=== PATIENT | male | born 1975 | race Caucasian/White ===

== ENCOUNTER 2022-07-26 09:58 | Outpatient (CLI) | payer OTHER, SELFPAY | END 2022-07-26 09:59 | disposition home or self-care (01) | LOC: ANHBWCAUD 09:59 | DX: H90.3 Sensorineural hearing loss, bilateral (principal) | CPT/HCPCS: 92557; 92567 ==

== ENCOUNTER 2024-07-15 08:04 | Outpatient (CLI) | payer OTHER, SELFPAY ==
--- OUTSIDE RECORDS SUMMARY | 2024-07-15 08:12 | XMS_ITS | Encounter Summary ---
Author Organization [facility] Address [address] [place] [address] Phone Care Team Providers Care Administrative Representative Name Role Phone Dinah López APRN, CNP Primary Care Provid er Wilfredo Wharton MD Unavailable Power Henao MD Unavailable Thomas Tompkins MD Unavailable Reason for Visit * Reason Comments Medication Refill Encounter Details Date Type Department Care Team (Late Contact Info) Description 08/21/2022 Refill [facility] #2 [place] [address] Dinah López APRN, CNP [address] [address] Medication Refill Social History Tobacco Use Types Packs/Day Years Used Date Smoking Tobacco: Never Smokeless Tobacco: Never Alcohol Use Standard Drinks/Week Comments No 0 (1 standard drink = 0.6 oz pur e alcohol) PHQ-2 Answer Date Recorded Total Score - Questions 1-9 19 05/17 Education Answer Date Recorded What is the highest level of school you have completed or the highest degree you have received? 12th grade 05/29/2022 Sexually Active Control Partners Comments Yes None Female Sex and Gender Information Value Date Recorded Sex Assigned at Not on file Legal Sex Male 8:06 PM CDT Gender Identity Not on file Sexual Orientation Not on file COVID-19 Exposure Response Date Recorded In the last 10 days, have yo u been in contact with someone who was confirmed or suspected to have Coronavirus/COVID-19? No / Unsure 08/08/2022 9:26 AM CDT documented as of this encounter Miscellaneous Notes * Telephone Encounter - Linda Pond RN - 08/22/2022 1:19 PM CDT Medication failed the protocol, provider to review and approve the medication order if appropriate. Requested Prescriptions Pending Prescriptions Disp Refills gabapentin (NEURONTIN) 400 MG Capsule [Pharmacy Med Name: GABAPENTIN 400MG CAPSULES] 90 Capsule 1 Sig: TAKE 1 CAPSULE BY MOUTH EVERY NIGHT Not Delegated - Anticonvulsants Excluding Benzodiazepines Protocol Failed - 08/21/2022 4:12 PM Failed - This refill cannot be delegated Passed - Visit with relevant provider in past 12 months or upcoming 90 days Recent Visits Date Type Provider Dept 08/08/22 Office Visit Dinah López APRN, CNP [facility] [place] 06/27/22 Office Visit Dinah López APRN, MARY [facility] 05/30/22 Office Visit Dinah López APRN, MARY [facility] 02/21/22 Office Visit Ellis Guardado APRN, MARY [facility] [place] 12/23/21 Office Visit Dinah López APRN, MARY [facility] 11/24/21 Office Visit Dinah López APRN, AMRY [facility] Showing recent visits within past 365 days and meeting all other requirements Future Appointments Date Type Provider Dept 11/09/22 Appointment Dinah López APRN, MARY [facility] Showing future appointments within next 90 days and meeting all other requirements Refused Prescriptions Disp Refills busPIRone (BUSPAR) 5 MG Tablet [Pharmacy Med Name: BUSPIRONE 5MG TABLETS] 180 Tablet 0 Sig: TAKE 1 TABLET BY MOUTH TWICE DAILY Buspirone (6 Month Refill Only) Protocol Failed - 08/21/2022 4:12 PM Failed - Active on medication list Failed - Patient has established therapy with Buspirone for at least 6 months Passed - Visit with relevant provider in past 6 months or upcoming 90 days Recent Visits Date Type Provider Dept 08/08/22 Office Visit Dinah López APRN, CNP [facility] [place] 06/27/22 Office Visit Dinah López APRN, CNP [facility] [place] 05/30/22 Office Visit Dinah López APRN, CNP [facility] [place] 02/21/22 Office Visit Ellis Guardado APRN, CNP [facility] [place] Showing recent visits within past 182 days and meeting all other requirements Future Appointments Date Type Provider Dept 11/09/22 Appointment Dinah López APRN, CNP [facility] [place] Showing future appointments within next 90 days and meeting all other requirements Passed - Has an encounter in the past 6 months with a depression or anxiety visit diagnosis * Telephone Encounter - Linda Pond RN - 08/22/2022 1:18 PM CDT Name from pharmacy: BUSPIRONE 5MG TABLETS Will file in chart as: busPIRone (BUSPAR) 5 MG Tablet The original prescription was discontinued on 06/27/2022 by Dinah López APRN, CNP documented in this encounter Plan of Treatment Upcoming Encounters Date Type Department Care Team (Late st Contact Info) Description 10/07/2024 8:00 AM CDT Office Visit [facility] - Family Medicine - [place] [address] [place] [address] Dinah López APRN, CNP [id number] [address] 01/08/2025 9:30 AM CDT Office Visit [facility] - Endocrinology - [place] [address] [place] [address] Wilfredo Wharton MD [address] [address] documented as of this encounter Visit Diagnoses Diagnosis Generalized anxiety disorder with panic attacks documented in this encounter Additional Health Concerns Assessment Noted Time PHQ-9 Depression Total Score: 19 05/30/ 023 11:00 AM CDT documented as of this encounter Care Teams Administrative Representative Relationship Specialty Start Date End Date Dinah López APRN, MANAGER AREA [address] [place] [address] [place] [address] PCP - General Advanced Practice Nurse 11/24/21 Wilfredo Wharton MD [address] [address] Consulting Physician Endocrinology 03/29/22 Power Henao MD #2 [place] [address] Consulting Physician Pulmonary Disease 09/12/22 Thomas Tompkins MD [address] [phone] Consulting Physician General Surgery 05/28/23 documented as of this encounter
--- OUTSIDE RECORDS SUMMARY | 2024-07-15 08:12 | XMS_ITS | Encounter Summary ---
Author Organization [facility] Address [address] [place] [address] Phone Care Team Providers Care Instrument Panel Assembler Name Role Phone Dinah López APRN, CNP Primary Care Provid er Wilfredo Wharton MD Unavailable Power Henao MD Unavailable Thomas Tompkins MD Unavailable [phone] Reason for Visit * Reason Comments Medication Refill Encounter Details Date Type Department Care Team (Late Contact Info) Description 01/25/2022 Refill [facility] - Family Medicine [facility] #2 [place] [address] Dinah López APRN, CNP #[address] [address] Medication Refill Social History Tobacco Use Types Packs/Day Years Used Date Smoking Tobacco: Never Smokeless Tobacco: Never Alcohol Use Standard Drinks/Week Comments No 0 (1 standard drink = 0.6 oz pur e alcohol) PHQ-2 Answer Date Recorded Total Score - Questions 1-9 0 10/2021 Education Answer Date Recorded What is the highest level of school you have completed or the highest degree you have received? GED or equivalent 10/2021 Sexually Active Control Partners Comments Yes None Female Sex and Gender Information Value Date Recorded Sex Assigned at Not on file Legal Sex Male 8:06 PM CDT Gender Identity Not on file Sexual Orientation Not on file documented as of this encounter Miscellaneous Notes * Telephone Encounter - Linda Pond RN - 01/26/2022 7:50 AM CST Medication failed the protocol, provider to review and approve the medication order if appropriate. Requested Prescriptions Pending Prescriptions Disp Refills sildenafil citrate (VIAGRA) 100 MG Tablet [Pharmacy Med Name: SILDENAFIL 100MG TABLETS] 30 Tablet 0 Sig: TAKE 1 TABLET BY MOUTH NEEDED FOR ERECTILE DYSFUNCTION Erectile Dysfunction Medication Protocol Failed - 01/25/2022 3:01 PM Failed - Erectile dysfunction on problem list Passed - Visit with relevant provider in past 12 months or upcoming 90 days Recent Visits Date Type Provider Dept 12/23/21 Office Visit Dinah López APRN, CNP [facility] 11/24/21 Office Visit [facility], [facility] Showing recent visits within past 365 days and meeting all other requirements Future Appointments Date Type Provider Dept 02/21/22 Appointment Ellis Guardado APRN, CNP [facility] [place] Showing future appointments within next 90 days and meeting all other requirements Passed - Absence of nitrates on med list EN YOGURT MAKER documented in this encounter Plan of Treatment Upcoming Encounters Date Type Department Care Team (Late st Contact Info) Description 10/07/2024 8:00 AM CDT Office Visit [facility] - Family Medicine - [place] [address]2 [place] [phone] Dinah López APRN, MARY #2 [facility] [address] [place] [address] 01/08/2025 9:30 AM CDT Office Visit [facility] Medical [facility] - Endocrinology - [place] [address]2 [place] [phone] Wilfredo Wharton MD #2 [facility] [address] [place] [phone] documented as of this encounter Visit Diagnoses Diagnosis Erectile dysfunction, unspecified erectile dysfunction type documented in this encounter Care Teams Instrument Panel Assembler Relationship Specialty Start Date End Date Dinah LópezMATT, MARY #2 [facility] [address] [place] [address] PCP - General Advanced Practice Nurse 11/24/21 Wilfredo Wharton MD #2 [facility] [address] [place] [address] Consulting Physician Endocrinology 03/29/22 Power Henao MD #2 [place] [phone] Consulting Physician Pulmonary Disease 09/12/22 Thomas Tompkins MD #[address] [address] Consulting Physician General Surgery 05/28/23 documented as of this encounter
--- OUTSIDE RECORDS SUMMARY | 2024-07-15 08:12 | XMS_ITS | Encounter Summary ---
Author Organization [facility] Address [address] [place] [address] Phone Care Team Providers Care Civil Engineering Project Manager Name Role Phone Dinah López APRN, CNP Primary Care Provid er Wilfredo Wharton MD Unavailable Power Henao MD Unavailable Thomas Tompkins MD Unavailable [phone] Reason for Visit * Reason Comments Medication Refill Encounter Details Date Type Department Care Team (Late Contact Info) Description 08/20/2023 Refill [facility] - Family Medicine [facility] #2 [place] [address] Dinah López APRN, CNP #[address] [address] Medication Refill Social History Tobacco Use Types Packs/Day Years Used Date Smoking Tobacco: Never Smokeless Tobacco: Never Alcohol Use Standard Drinks/Week Comments No 0 (1 standard drink = 0.6 oz pur e alcohol) [facility] Utilities Answer Date Recorded In the past 12 months has th e electric, gas, oil, or water company threatened to shut off services in your home? No 05/16/2023 Social Connection and Isolation Panel [NHANES] A nswer Date Recorded In a typical week, how many times do you talk on the phone with family, friends, or neighbors? Once a week 05/16/2023 How often do you get together with friends or re latives? Twice a week 05/16/2023 How often do you attend oriental orthodox or hindu serv ices? Never 05/16/2023 Do you belong to any clubs o r organizations such as oriental orthodox groups, unions, fraternal or athletic groups, or school groups? No 05/16/2023 How often do you attend meet ings of the clubs or organizations you belong to? Never 05/16/2023 Are you , , di vorced, , never , or living with a partner? 05/16/2023 AUDIT-C Answer Date Recorded Q1: How often do you have a drink containing alcohol? Never 05/16/2023 Q2: How many drinks containi ng alcohol do you have on a typical day when you are drinking? Patient does not drink Q3: How often do you have si x or more drinks on one occasion? Never 05/16/2023 Overall Financial Resource Strain (CARDIA) Answe r Date Recorded How hard is it for you to pa y for the very basics like food, housing, medical care, and heating? Not hard at all 05/16/2023 PHQ-2 Answer Date Recorded Total Score - Questions 1-9 0 /0 03/2023 [facility] - Occupational Stress Questionnaire Answer Date Recorded Do you feel stress - tense, restless, nervous, or anxious, or unable to sleep at night because your mind is troubled all the time - these days? Patient declined 05/16/2023 Exercise Vital Sign Answer Date Recorde d On average, how many days pe r week do you engage in moderate to strenuous exercise (like a brisk walk)? 2 days 05/16/2023 On average, how many minutes do you engage in exercise at this level? 20 min 05/16/2023 Hunger Vital Sign Answer Date Recorded Within the past 12 months, y ou worried that your food would run out before you got the money to buy more. Never true Within the past 12 months, t he food you bought just didn't last and you didn't have money to get more. Sometimes true PRAPARE - Transportation Answer Date Re corded In the past 12 months, has l ack of transportation kept you from medical appointments or from getting medications? No 04/20 In the past 12 months, has l ack of transportation kept you from meetings, work, or from getting things needed for daily living? No 05/16/2023 Housing Stability Vital Sign Answer Jeffrey e Recorded In the last 12 months, was t here a time when you were not able to pay the mortgage or rent on time? No 05/16/2023 In the last 12 months, how many places have you lived? 1 05/16/2023 In the last 12 months, was t here a time when you did not have a steady place to sleep or slept in a fci (including now)? No 05/16/2023 Education Answer Date Recorded What is the [...] Telephone Encounter - Linda Pond RN - 08/20/2023 11:43 AM CDT Medication failed the protocol, provider to review and approve the medication order if appropriate. Requested Prescriptions Pending Prescriptions Disp Refills sildenafil citrate (VIAGRA) 100 MG Tablet [Pharmacy Med Name: SILDENAFIL 100MG TABLETS] 30 Tablet 0 Sig: TAKE 1 TABLET BY MOUTH DAILY NEEDED FOR ERECTILE DYSFUNCTION Erectile Dysfunction Medication Protocol Failed - 08/20/2023 12:41 AM Failed - Erectile dysfunction on problem list Passed - Visit with relevant provider in past 12 months or upcoming 90 days Recent Visits Date Type Provider Dept 05/18/23 Office Visit Dinah López APRN, MARY [place] 11/09/22 Office Visit Dinah López APRN, M[facility] [place] Showing recent visits within past 365 days and meeting all other requirements Future Appointments Date Type Provider Dept 09/17/23 Appointment Dinah López APRN, M[facility] [place] Showing future appointments within next 90 days and meeting all other requirements Passed - Absence of nitrates on med list documented in this encounter Plan of Treatment Upcoming Encounters Date Type Department Care Team (Late st Contact Info) Description 10/07/2024 8:00 AM CDT [facility] #2 [place] [address] Dinah López APRN, DATA ENTRY MANAGER #[address] [address] 01/08/2025 9:30 AM CDT Office Visit [facility] Endocrinology - [place] #2 [place] [phone] Wilfredo Wharton MD #[address] [phone] documented as of this encounter Visit Diagnoses Diagnosis Erectile dysfunction, unspecified erectile dysfunction type documented in this encounter Additional Health Concerns Assessment Noted Time PHQ-9 Depression Total Score: 0 05/18/19 24 9:04 AM PROGRAM MANAGEMENT SPECIALIST documented as of this encounter Care Teams Civil Engineering Project Manager Relationship Specialty Start Date End Date Dinah López APRN, DATA ENTRY MANAGER #[address] [address] PCP - General Advanced Practice Nurse 11/24/21 Wilfredo Wharton MD #[address] [phone] Consulting Physician Endocrinology 03/29/22 Power Henao MD #2 [place] [phone] Consulting Physician Pulmonary Disease 09/12/22 Thomas Tompkins MD #[address] [address] Consulting Physician General Surgery 05/28/23 documented as of this encounter
--- OUTSIDE RECORDS SUMMARY | 2024-07-15 08:12 | XMS_ITS | Encounter Summary ---
Author Organization [facility] Address [address] [place] [address] Phone Care Team Providers Care Assembler Small Products Name Role Phone Dinah López APRN, CNP Primary Care Provid er Wilfredo Wharton MD Unavailable Power Henao MD Unavailable Thomas Tompkins MD Unavailable [phone] Reason for Visit * Reason Comments Medication Refill Encounter Details Date Type Department Care Team (Late st Contact Info) Description 05/23/2022 Refill [facility] #2 [place] [phone] Piotr Alexander MD #[address] [address] Medication Refill Social History Tobacco Use Types [...] Telephone Encounter - Linda Pond RN - 05/23/2022 1:33 PM CST Medication failed the protocol, provider to review and approve the medication order if appropriate. Requested Prescriptions Pending Prescriptions Disp Refills gabapentin (NEURONTIN) 400 MG Capsule [Pharmacy Med Name: GABAPENTIN 400MG CAPSULES] 90 Capsule 0 Sig: TAKE 1 CAPSULE BY MOUTH EVERY NIGHT Not Delegated - Anticonvulsants Excluding Benzodiazepines Protocol Failed - 05/23/2022 10:22 AM Failed - This refill cannot be delegated Passed - Visit with relevant provider in past 12 months or upcoming 90 days Recent Visits Date Type Provider Dept 02/21/22 Office Visit Ellis Guardado APRN, CNP [facility] 12/23/21 Office Visit Dinah López APRN, CNP [facility] 11/24/21 Office Visit Dinah López APRN, MARY [facility] [place] Showing recent visits within past 365 days and meeting all other requirements Future Appointments Date Type Provider Dept 05/30/22 Appointment Dinah López APRN, CNP [facility] [place] Showing future appointments within next 90 days and meeting all other requirements NCILING CLERK documented in this encounter Plan of Treatment Upcoming Encounters Date Type Department Care Team (Late st Contact Info) Description 10/07/2024 8:00 AM CDT Office Visit [facility] - Family Medicine - [facility] #2 [place] [address] Dinah López APRN, MARY #[address] [phone] 01/08/2025 9:30 AM CDT Office Visit [facility] - Endocrinology - [facility] #2 [place] [address] Wilfredo Wharton MD #[address] [address] documented as of this encounter Visit Diagnoses Not on filedocumented in this encounter Care Teams Assembler Small Products Relationship Specialty Start Date End Date CharitoDinah berg APRN, INFORMATION TECHNOLOGY TECHNICIAN #[address] [address] PCP - General Advanced Practice Nurse 11/24/21 Wilfredo Wharton MD #[address] [phone] Consulting Physician Endocrinology 03/29/22 Power Henao MD #2 [place] [address] Consulting Physician Pulmonary Disease 09/12/22 Thomas Tompkins MD #[address] [phone] Consulting Physician General Surgery 05/28/23 documented as of this encounter
--- OUTSIDE RECORDS SUMMARY | 2024-07-15 08:12 | XMS_ITS | Encounter Summary ---
Author Organization [facility] Address [address] [place] [address] Phone Care Team Providers Care Collection Development Librarian Name Role Phone Dinah López APRN, CNP Primary Care Provid er Wilfredo Wharton MD Unavailable Power Henao MD Unavailable Thomas Tompkins MD Unavailable Reason for Visit * Reason Comments Medication Refill Encounter Details Date Type Department Care Team (Late Contact Info) Description 02/02/2023 Refill [facility] #2 [place] [address] iDnah López APRN, CNP #[address] [address] Medication Refill Social History Tobacco [...] suspected to have Coronavirus/COVID-19? No / Unsure 01/11/2023 10:59 AM CDT documented as of this encounter Miscellaneous Notes * Telephone Encounter - Evita Blackwood RN - 02/03/2023 9:34 AM ELECTRICIAN CONTROL EQUIPMENT Medication failed the protocol, provider to review and approve the medication order if appropriate. Requested Prescriptions Pending Prescriptions Disp Refills hydrOXYzine (ATARAX) 50 MG Tablet [Pharmacy Med Name: HYDROXYZINE HCL 50MG TABS (WHITE)] 30 Tablet 0 Sig: TAKE 1 TABLET BY MOUTH EVERY 6 HOURS NEEDED FOR ANXIETY OR SLEEP Not Delegated - Off Protocol Failed - 02/02/2023 9:57 PM Failed - This refill cannot be delegated Passed - Visit with relevant provider in past 12 months or upcoming 90 days Recent Visits Date Type Provider Dept 11/09/22 Office Visit Dinah López APRN, CNP [facility] 08/08/22 Office Visit Dinah López APRN, CNP [facility] 06/27/22 Office Visit Dinah López APRN, CNP [facility] 05/30/22 Office Visit Dinah López APRN, CNP [facility] [place] 02/21/22 Office Visit Ellis Guardado APRN, HOP PICKER [facility] [place] Showing recent visits within past 365 days and meeting all other requirements Future Appointments No visits were found meeting these conditions. Showing future appointments within next 90 days and meeting all other requirements TRICIAN CONTROL EQUIPMENT documented in this encounter Plan of Treatment Upcoming Encounters Date Type Department Care Team (Late st Contact Info) Description 10/07/2024 8:00 AM CDT Office Visit [facility] - Family [facility] [place] #2 [place] [address] Dinah López APRN, HOP PICKER [id number] [address] 01/08/2025 9:30 AM CDT [facility] Visit [facility] Endocrinology [facility] #[address] [place] [address] Wilfredo Wharton MD [id number] [address] documented as of this encounter Visit Diagnoses Diagnosis Generalized anxiety disorder with panic attacks documented in this encounter Additional Health Concerns Assessment Noted Time PHQ-9 Depression Total Score: 19 05/30/ 023 11:00 AM CDT documented as of this encounter Care Teams Collection Development Librarian Relationship Specialty Start Date End Date Dinah óLpez APRN, HOP PICKER [id number] [address] PCP - General Advanced Practice Nurse 11/24/21 Wilfredo Wharton MD #[id number] [address] Consulting Physician Endocrinology 03/29/22 Power Henao MD #[address] [place] [address] Consulting Physician Pulmonary Disease 09/12/22 Thomas Tompkins MD [address] [address] Consulting Physician General Surgery 05/28/23 documented as of this encounter
--- OUTSIDE RECORDS SUMMARY | 2024-07-15 08:12 | XMS_ITS | Encounter Summary ---
Author Organization [facility] Address [address] [place] [address] Phone Care Team Providers Care Punch Molder Name Role Phone Dinah López APRN, CNP Primary Care Provid er Wilfredo Wharton MD Unavailable Power Henao MD Unavailable Thomas Tompkins MD Unavailable Reason for Visit * Reason Comments Medication Refill Encounter Details Date Type Department Care Team (Late Contact Info) Description 11/29/2022 Refill [facility] Family Medicine [facility] #2 [place] [phone] Lluvia Aponte, [facility] #[address] [place] [address] Medication Refill Social History Tobacco Use Types [...] suspected to have Coronavirus/COVID-19? No / Unsure 11/09/2022 10:05 AM CDT documented as of this encounter Miscellaneous Notes * Telephone Encounter - Evita Blackwood RN - 11/29/2022 4:49 PM CDT Medication failed the protocol, provider to review and approve the medication order if appropriate. Requested Prescriptions Pending Prescriptions Disp Refills hydrOXYzine (ATARAX) 50 MG Tablet [Pharmacy Med Name: HYDROXYZINE HCL 50MG TABS (WHITE)] 30 Tablet 0 Sig: TAKE 1 TABLET BY MOUTH EVERY 6 HOURS NEEDED FOR ANXIETY OR SLEEP Not Delegated - Off Protocol Failed - 11/29/2022 4:44 PM Failed - This refill cannot be delegated Passed - Visit with relevant provider in past 12 months or upcoming 90 days Recent Visits Date Type Provider Dept 11/09/22 Office Visit Dinah López APRN, MARY [facility] 08/08/22 Office Visit Dinah López APRN, MARY [facility] 06/27/22 Office Visit Dinah López APRN, MARY [facility] 05/30/22 Office Visit Dinah López APRN, MARY [facility] 02/21/22 Office Visit Ellis Guardado APRN, MARY [facility] 12/23/21 Office Visit Dinah López APRN, STERILISATION TECHNICIAN [facility] Showing recent visits within past 365 days and meeting all other requirements Future Appointments No visits were found meeting these conditions. Showing future appointments within next 90 days and meeting all other requirements documented in this encounter Plan of Treatment Upcoming Encounters Date Type Department Care Team (Late st Contact Info) Description 10/07/2024 8:00 AM CDT Office Visit [facility] - Family Medicine - [place] [address]2 [place] [address] Dinah López APRN, STERILISATION TECHNICIAN #[address] [address] 01/08/2025 9:30 AM CDT Office Visit [facility] #2 [place] [address] Wilfredo Wharton MD #[address] [address] documented as of this encounter Visit Diagnoses Diagnosis Generalized anxiety disorder with panic attacks documented in this encounter Additional Health Concerns Assessment Noted Time PHQ-9 Depression Total Score: 19 023 11:00 AM CDT documented as of this encounter Care Teams Punch Molder Relationship Specialty Start Date End Date Dinah López APRN, STERILISATION TECHNICIAN #[address] [address] PCP - General Advanced Practice Nurse 11/24/21 Wilfredo Wharton MD #[address] [address] Consulting Physician Endocrinology 03/29/22 Power Henao MD #2 [place] [address] Consulting Physician Pulmonary Disease 09/12/22 Thomas Tompkins MD #[address] [address] Consulting Physician General Surgery 05/28/23 documented as of this encounter
--- OUTSIDE RECORDS SUMMARY | 2024-07-15 08:12 | XMS_ITS | Encounter Summary ---
Author Organization [facility] Address [address] [place] [address] Phone Care Team Providers Care Grain Weigher Name Role Phone Dinah López APRN, CNP Primary Care Provid er Wilfredo Wharton MD Unavailable Power Henao MD Unavailable Thomas Tompkins MD Unavailable [phone] Reason for Visit * Reason Comments Medication Refill Encounter Details Date Type Department Care Team (Late Contact Info) Description 03/19/2023 Refill [facility] - Family Medicine [facility] #2 [place] [address] Dinah López APRN, CNP #[address] [address] Medication Refill Social History Tobacco [...] Telephone Encounter - Linda Pond RN - 03/20/2023 9:44 AM CST Medication failed the protocol, provider to review and approve the medication order if appropriate. Requested Prescriptions Pending Prescriptions Disp Refills sildenafil citrate (VIAGRA) 100 MG Tablet [Pharmacy Med Name: SILDENAFIL 100MG TABLETS] 30 Tablet 0 Sig: TAKE 1 TABLET BY MOUTH DAILY NEEDED FOR ERCTILE DYSFUNCTION Erectile Dysfunction Medication Protocol Failed - 03/19/2023 1:05 PM Failed - Erectile dysfunction on problem list Passed - Visit with relevant provider in past 12 months or upcoming 90 days Recent Visits Date Type Provider Dept 11/09/22 Office Visit Dinah López APRN, CNP [facility] 08/08/22 Office Visit Dinah López APRN, CNP [facility] 06/27/22 Office Visit Dinah López APRN, CNP [facility] 05/30/22 Office Visit Dinah López APRN, MARY [facility] Showing recent visits within past 365 days and meeting all other requirements Future Appointments Date Type Provider Dept 05/14/23 Appointment Dinah López APRN, CNP [facility] Showing future appointments within next 90 days and meeting all other requirements Passed - Absence of nitrates on med list E REPAIRER RAILROAD documented in this encounter Plan of Treatment Upcoming Encounters Date Type Department Care Team (Late st Contact Info) Description 10/07/2024 8:00 AM CDT Office Visit [facility] [place] #2 [place] [address] Dinah López APRN, MARY #[address] [address] 01/08/2025 9:30 AM CDT Office Visit [facility] - Endocrinology - [place] #2 [place] [address] Wilfredo Wharton MD [address] [address] documented as of this encounter Visit Diagnoses Diagnosis Erectile dysfunction, unspecified erectile dysfunction type documented in this encounter Additional Health Concerns Assessment Noted Time PHQ-9 Depression Total Score: 19 023 11:00 AM CDT documented as of this encounter Care Teams Grain Weigher Relationship Specialty Start Date End Date Dinah López APRN, BUSINESS OFFICE TECHNOLOGY INSTRUCTOR [address] [address] PCP - General Advanced Practice Nurse 11/24/21 Wilfredo Wharton MD [address] [address] Consulting Physician Endocrinology 03/29/22 Power Henao MD #2 [place] [address] Consulting Physician Pulmonary Disease 09/12/22 Thomas Tompkins MD [address] [address] Consulting Physician General Surgery 05/28/23 documented as of this encounter
--- OUTSIDE RECORDS SUMMARY | 2024-07-15 08:12 | XMS_ITS | Encounter Summary ---
Author Organization [facility] Address [address] [place] [address] Phone Care Team Providers Care Denture Waxer Name Role Phone Dinah López APRN, CNP Primary Care Provid er Wilfredo Wharton MD Unavailable Power Henao MD Unavailable Thomas Tompkins MD Unavailable Reason for Visit * Reason Comments Medication Refill Encounter Details Date Type Department Care Team (Late Contact Info) Description 03/25/2023 Refill [facility] - Family Medicine [facility] #2 [place] [address] Dinah López APRN, CNP #[address] [address] Medication Refill Social History Tobacco [...] Telephone Encounter - Evita Blackwood RN - 03/25/2023 5:36 PM KENO WRITER / RUNNER Medication failed the protocol, provider to review and approve the medication order if appropriate. Requested Prescriptions Pending Prescriptions Disp Refills hydrOXYzine (ATARAX) 50 MG Tablet [Pharmacy Med Name: HYDROXYZINE HCL 50MG TABS (WHITE)] 30 Tablet 0 Sig: TAKE 1 TABLET BY MOUTH EVERY 6 HOURS NEEDED FOR ANXIETY OR SLEEP Not Delegated - Off Protocol Failed - 03/25/2023 3:03 PM Failed - This refill cannot be delegated Passed - Visit with relevant provider in past 12 months or upcoming 90 days Recent Visits Date Type Provider Dept 11/09/22 Office Visit Dinah López APRN, CNP [facility] 08/08/22 Office Visit Dinah López APRN, CNP [facility] 06/27/22 Office Visit Dinah López APRN, CNP [facility] 05/30/22 Office Visit Dinah López APRN, MARY [facility] Showing recent visits within past 365 days and meeting all other requirements Future Appointments Date Type Provider Dept 05/14/23 Appointment Dinah López APRN, MARY [facility] Showing future appointments within next 90 days and meeting all other requirements WRITER / RUNNER documented in this encounter Plan of Treatment Upcoming Encounters Date Type Department Care Team (Late st Contact Info) Description 10/07/2024 8:00 AM CDT [facility] - [place] [address]2 [place] [address] Dinah López APRN, MRAY #[address] [address] 01/08/2025 9:30 AM CDT Office Visit [facility] - Endocrinology - [place] #2 [place] [address] Wilfredo Wharton MD [address] [place] [address] documented as of this encounter Visit Diagnoses Diagnosis Generalized anxiety disorder with panic attacks documented in this encounter Additional Health Concerns Assessment Noted Time PHQ-9 Depression Total Score: 19 023 11:00 AM CDT documented as of this encounter Care Teams Denture Waxer Relationship Specialty Start Date End Date Dinah López APRN, STORE MANAGEMENT TRAINEE [address] [address] PCP - General Advanced Practice Nurse 11/24/21 Wilfredo Wharton MD #[address] [address] Consulting Physician Endocrinology 03/29/22 Power Henao MD #2 [place] [address] Consulting Physician Pulmonary Disease 09/12/22 Thomas Tompkins MD #[address] [address] Consulting Physician General Surgery 05/28/23 documented as of this encounter
--- OUTSIDE RECORDS SUMMARY | 2024-07-15 08:12 | XMS_ITS | Encounter Summary ---
Author Organization [facility] Address [address] [place] [address] Phone Care Team Providers Care Documentation Supervisor Name Role Phone Dinah López APRN, CNP Primary Care Provid er Wilfredo Wharton MD Unavailable Power Henao MD Unavailable Thomas Tompkins MD Unavailable Reason for Visit * Reason Comments Medication Refill Encounter Details Date Type Department Care Team (Late Contact Info) Description 08/28/2023 Refill [facility] - Family Medicine [facility] #2 [place] [address] Dinah López APRN, CNP #[address] [address] Medication Refill Social History Tobacco Use Types Packs/Day Years Used Date Smoking Tobacco: Never Smokeless Tobacco: Never Alcohol Use Standard Drinks/Week Comments No 0 (1 standard drink = 0.6 oz pur e alcohol) [facility] Utilities Answer Date Recorded In the past [...] week 05/16/2023 How often do you attend tenriism or sikhism serv ices? Never 05/16/2023 Do you belong to any clubs o r organizations such as tenriism groups, unions, fraternal or athletic groups, or [...] Score - Questions 1-9 0 /0 03/2023 [facility] - Occupational Stress [...] place to sleep or slept in a residential (including now)? No 05/16/2023 Education Answer Date [...] Telephone Encounter - Linda Pond RN - 08/28/2023 11:59 AM CDT Per nursing clinical judgement, provider to review and approve the medication(s) order(s) if appropriate. Requested Prescriptions Pending Prescriptions Disp Refills simvastatin (ZOCOR) 80 MG Tablet [Pharmacy Med Name: SIMVASTATIN 80MG TABLETS] 90 Tablet 1 Sig: TAKE 1 TABLET BY MOUTH EVERY NIGHT [facility]mg CoA Reductase Inhibitors Protocol Passed - 08/28/2023 3:31 AM Passed - Visit with relevant provider in [...] and meeting all other requirements Passed - Lipid panel in past 12 months LDL Date Value Ref Range Status 05/10/2023 115 <130 mg/dL Final HDL CHOLESTEROL Date Value Ref Range Status 05/10/2023 34 (L) >40 mg/dL Final CHOLESTEROL Date Value Ref Range Status 05/10/2023 195 <200 mg/dL Final TRIGLYCERIDES Date Value Ref Range Status 05/10/2023 229 (H) <150 mg/dL Final VLDL Date Value Ref Range Status 05/10/2023 46 10 - 50 mg/dL Final CHOL/HDL RATIO Date Value Ref Range Status 05/10/2023 5.7 (H) 0.0 - 4.4 Final NON-HDL CHOLESTEROL Date Value Ref Range Status 05/10/2023 161 (H) <130 mg/dL Final Passed - CMP in past 12 months SODIUM Date Value Ref Range Status 05/10/2023 140 136 - 145 mmol/L Final POTASSIUM Date Value Ref Range Status 05/10/2023 3.9 3.5 - 5.1 mmol/L Final CHLORIDE Date Value Ref Range Status 05/10/2023 107 98 - 107 mmol/L Final CO2, VENOUS Date Value Ref Range Status 05/10/2023 25 22 - 30 mmol/L Final ANION GAP Date Value Ref Range Status 05/10/2023 11.9 <18.0 mmol/L Final GLUCOSE Date Value Ref Range Status 05/10/2023 123 (H) 70 - 99 mg/dL Final BUN Date Value Ref Range Status 05/10/2023 12 9 - 21 mg/dL Final CREATININE, BLOOD Date Value Ref Range Status 05/10/2023 1.18 0.70 - 1.30 mg/dL Final BUN/CREATININE RATIO Date Value Ref Range Status 05/10/2023 10 (L) 12 - 20 ratio Final TOTAL PROTEIN Date Value Ref Range Status 05/10/2023 7.0 6.3 - 8.2 g/dL Final ALBUMIN Date Value Ref Range Status 05/10/2023 4.2 3.5 - 5.0 g/dL Final A/G RATIO Date Value Ref Range Status 05/10/2023 1.5 1.0 - 2.2 Final CALCIUM Date Value Ref Range Status 05/10/2023 9.3 8.7 - 10.5 mg/dL Final T BILI Date Value Ref Range Status 05/10/2023 1.7 (H) 0.2 - 1.2 mg/dL Final SGOT (AST) Date Value Ref Range Status 05/10/2023 20 5 - 34 U/L Final SGPT (ALT) Date Value Ref Range Status 05/10/2023 42 0 - 55 U/L Final ALKALINE PHOSPHATASE Date Value Ref Range Status 05/10/2023 94 40 - 150 U/L Final GFR, EST. NONAFRICAN Date Value Ref Range Status 05/10/2023 >60 >=60 Final GFR, EST. Date Value Ref Range Status 05/10/2023 >60 >=60 Final GFR, ESTIMATED Date Value Ref Range Status 05/10/2023 >60 >=60 Final Comment: Creatinine Clearance is the preferred criteria for selecting drug dose adjustments in renally impaired patients. The GFR is provided as additional pertinent clinical information. GFR is reported in mL/min/1.73 sq m. Calculation based on the Chronic Kidney Disease Epidemiology Collaboration (CKD- EPI) equation refitwithout adjustment for race. IS THE PATIENT REQUIRED TO BE FASTING? Date Value Ref Range Status 05/10/2023 No Final gabapentin (NEURONTIN) 400 MG Capsule 90 Capsule 1 Sig: Take 1 Capsule by mouth nightly. There is no refill protocol information for this order documented in this encounter Plan of Treatment Upcoming Encounters Date Type Department Care Team (Late st Contact Info) Description 10/07/2024 8:00 AM CDT Office Visit [facility] Medical [facility] - Family Medicine [facility] #2 [place] [address] Dinah López APRN, BERRY PICKER MACHINE OPERATOR #2 [facility] [address] [place] [address] 01/08/2025 9:30 AM CDT Office Visit [facility] - Endocrinology [facility] #2 [place] [address] Wilfredo Wharton MD #2 [facility] [address] [place] [address] documented as of this encounter Visit Diagnoses Diagnosis Mixed hyperlipidemia documented in this encounter Additional Health Concerns Assessment Noted Time PHQ-9 Depression Total Score: 0 05/18/19 24 9:04 AM EMBEDDED LINUX ENGINEER documented as of this encounter Care Teams Documentation Supervisor Relationship Specialty Start Date End Date Dinah López APRN, CNP #2 [facility] [address] [place] [address] PCP - General Advanced Practice Nurse 11/24/21 Wilfredo Wharton MD #2 [facility] [address] [place] [address] Consulting Physician Endocrinology 03/29/22 Power Henao MD #2 [place] [address] Consulting Physician Pulmonary Disease 09/12/22 Thomas Tompkins MD #[address] [address] Consulting Physician General Surgery 05/28/23 documented as of this encounter
--- OUTSIDE RECORDS SUMMARY | 2024-07-15 08:12 | XMS_ITS | Encounter Summary ---
Author Organization [facility] Address [address] [place] [address] Phone Care Team Providers Care Cloth Spreader Screen Printing Name Role Phone Dinah López APRN, CNP Primary Care Provid er Wilfredo Wharton MD Unavailable Power Henao MD Unavailable Thomas Tompkins MD Unavailable Reason for Visit * Reason Comments Medication Refill Encounter Details Date Type Department Care Team (Late Contact Info) Description 02/21/2022 Refill [facility] - Family Medicine [facility] #2 [place] [address] Dinah López APRN, CNP #[address] [address] Medication Refill Social History Tobacco [...] suspected to have Coronavirus/COVID-19? No / Unsure 02/21/2022 9:29 AM WELDER FABRICATOR documented as of this encounter Functional Status * Question Answer Date of Assessment Author Little interest or pleasure in doing things Not at all 02/21/2022 9:00 AM Tyson Rodriguez RMA Feeling down, depressed, or hopeless Not at all 02/21/2022 9:00 AM Tyson Rodriguez RMA * Over the past 2 weeks, how often have you been bothered by any of the following problems? Question Answer Date of Assessment Author Patient Health Questionnaire -2 Score 0 02/21/2022 9:00 AM Tyson Rodriguez RMA documented as of this encounter Miscellaneous Notes * Telephone Encounter - Linda Pond RN - 02/21/2022 2:59 PM CST Medication failed the protocol, provider to review and approve the medication order if appropriate. Requested Prescriptions Pending Prescriptions Disp Refills gabapentin (NEURONTIN) 400 MG Capsule [Pharmacy Med Name: GABAPENTIN 400MG CAPSULES] 90 Capsule 0 Sig: TAKE 1 CAPSULE BY MOUTH EVERY NIGHT Not Delegated - Anticonvulsants Excluding Benzodiazepines Protocol Failed - 02/21/2022 2:18 PM Failed - This refill cannot be delegated Passed - Visit with relevant provider in past 12 months or upcoming 90 days Recent Visits Date Type Provider Dept 12/23/21 Office Visit Dinah López APRN, CNP [facility] 11/24/21 Office Visit Dinah López APRN, CNP [facility] Showing recent visits within past 365 days and meeting all other requirements Today's Visits Date Type Provider Dept 02/21/22 Office Visit Ellis Guardado APRN, CNP [facility] Showing today's visits and meeting all other requirements Future Appointments No visits were found meeting these conditions. Showing future appointments within next 90 days and meeting all other requirements ER FABRICATOR documented in this encounter Plan of Treatment Upcoming Encounters Date Type Department Care Team (Late st Contact Info) Description 10/07/2024 8:00 AM CDT Office Visit [facility] - Family Medicine [facility] #2 [place] [address] Dinah López APRN, POLYSOMNOGRAPHER #[address] [address] 01/08/2025 9:30 AM CDT Office Visit [facility] Endocrinology [facility] #2 [place] [address] Wilfredo Wharton MD #[address] [address] documented as of this encounter Visit Diagnoses Not on filedocumented in this encounter Care Teams Cloth Spreader Screen Printing Relationship Specialty Start Date End Date Dinah López APRN, POLYSOMNOGRAPHER #[address] [address] PCP - General Advanced Practice Nurse 11/24/21 Wilfredo Wharton MD #[address] [address] Consulting Physician Endocrinology 03/29/22 Power Henao MD #2 [place] [address] Consulting Physician Pulmonary Disease 09/12/22 Thomas Tompkins MD #[address] [address] Consulting Physician General Surgery 05/28/23 documented as of this encounter
--- OUTSIDE RECORDS SUMMARY | 2024-07-15 08:12 | XMS_ITS ---
Author Organization [facility] Address #1 [place] [address] Phone Care Team Providers Care Drapery Seamstress Name Role Phone Dinah López APRN, MARY Primary Care Provid er Wilfredo Wharton MD Unavailable Power Henao MD Unavailable Thomas Tompkins MD Unavailable [facility] Status:Enrolled (Active) Start date:04/16/2024 Enrollment date:04/16/2024 Related social drivers of health:Social Connections, Financial Resource Strain, Stress, Physical Activity, Food Insecurity, Housing Stability Continued Care and Services Coordination
--- OUTSIDE RECORDS SUMMARY | 2024-07-15 08:12 | XMS_ITS | Encounter Summary ---
Author Organization [facility] Address [address] [place] [address] Phone Care Team Providers Care Tin Assorter Name Role Phone Dinah López APRN, CNP Primary Care Provid er Wilfredo Wharton MD Unavailable Power Henao MD Unavailable Thomas Tompkins MD Unavailable [phone] Reason for Visit * Reason Comments Medication Refill Encounter Details Date Type Department Care Team (Late Contact Info) Description 09/05/2022 [facility]ill [facility] #2 [place] [address] Dinah López APRN, CNP #[address] [address] Medication Refill Social History Tobacco [...] suspected to have Coronavirus/COVID-19? No / Unsure 08/25/2022 9:48 AM CDT documented as of this encounter Miscellaneous Notes * Telephone Encounter - Linda Pond RN - 09/07/2022 7:52 AM CDT Name from pharmacy: SILDENAFIL 100MG TABLETS Will file in chart as: sildenafil citrate (VIAGRA) 100 MG Tablet The original prescription was reordered on 09/05/2022 by Dinah López APRN, DIRECTOR WOMEN. * Telephone Encounter - Linda Pond RN - 09/05/2022 5:23 PM CDT duplicate documented in this encounter Plan of Treatment Upcoming Encounters Date Type Department Care Team (Late st Contact Info) Description 10/07/2024 8:00 AM CDT Office Visit [facility] Group - Family Medicine [facility] #2 [place] [address] Dinah López APRN, DIRECTOR WOMEN #2 [facility] [address] [place] [address] 01/08/2025 9:30 AM CDT Office Visit [facility] Medical [facility] - Endocrinology - [place] #2 [place] [address] Wilfredo Wharton MD #[address] [address] documented as of this encounter Visit Diagnoses Diagnosis Erectile dysfunction, unspecified erectile dysfunction type documented in this encounter Additional Health Concerns Assessment Noted Time PHQ-9 Depression Total Score: 19 023 11:00 AM CDT documented as of this encounter Care Teams Tin Assorter Relationship Specialty Start Date End Date Dinah López APRN, CNP #2 [facility] [address] [place] [address] PCP - General Advanced Practice Nurse 11/24/21 Wilfredo Wharton MD #2 [facility] [address] [place] [address] Consulting Physician Endocrinology 03/29/22 Power Henao MD #2 [place] [address] Consulting Physician Pulmonary Disease 09/12/22 Thomas Tompkins MD #[address] [address] Consulting Physician General Surgery 05/28/23 documented as of this encounter
--- OUTSIDE RECORDS SUMMARY | 2024-07-15 08:12 | XMS_ITS | Encounter Summary ---
Author Organization [facility] Address [address] [place] [address] Phone Care Team Providers Care Nib Finisher Name Role Phone Dinah López APRN, CNP Primary Care Provid er Wilfredo Wharton MD Unavailable Power Henao MD Unavailable Thomas Tompkins MD Unavailable Reason for Visit * Reason Comments Medication Refill Encounter Details Date Type Department Care Team (Late Contact Info) Description 03/04/2023 Refill [facility] - Family Medicine [facility] [address] [place] [address] Dinah López APRN, CNP [address] [address] Medication Refill Social History Tobacco [...] Telephone Encounter - Evita Blackwood RN - 03/04/2023 11:32 AM MATRIX REPAIRER Medication failed the protocol, provider to review and approve the medication order if appropriate. Requested Prescriptions Pending Prescriptions Disp Refills gabapentin (NEURONTIN) 400 MG Capsule [Pharmacy Med Name: GABAPENTIN 400MG CAPSULES] 90 Capsule 1 Sig: TAKE 1 CAPSULE BY MOUTH EVERY NIGHT Not Delegated - Anticonvulsants Excluding Benzodiazepines Protocol Failed - 03/04/2023 3:31 AM Failed - This refill cannot be delegated Passed - Visit with relevant provider in past 12 months or upcoming 90 days Recent Visits Date Type Provider Dept 11/09/22 Office Visit Dinah López APRN, MARY [facility] 08/08/22 Office Visit Dinah López APRN, MARY [facility] 06/27/22 Office Visit Dinah López APRN, PACKAGING CLERK [facility] 05/30/22 Office Visit Dinah López APRN, PACKAGING CLERK [facility] Showing recent visits within past 365 days and meeting all other requirements Future Appointments Date Type Provider Dept 05/14/23 Appointment Dinah López APRN, MARY [facility] Showing future appointments within next 90 days and meeting all other requirements simvastatin (ZOCOR) 80 MG Tablet [Pharmacy Med Name: SIMVASTATIN 80MG TABLETS] 90 Tablet 1 Sig: TAKE 1 TABLET BY MOUTH EVERY NIGHT [facility] CoA Reductase Inhibitors Protocol Passed - 03/04/2023 3:31 AM Passed - Visit with relevant provider in past 12 months or upcoming 90 days Recent Visits Date Type Provider Dept 11/09/22 Office Visit Dinah López APRN, MARY [facility] 08/08/22 Office Visit Dinah López APRN, MARY [facility] 06/27/22 Office Visit Dinah López APRN, MARY [facility] 05/30/22 Office Visit Dinah López APRN, PACKAGING CLERK [facility] Showing recent visits within past 365 days and meeting all other requirements Future Appointments Date Type Provider Dept 05/14/23 Appointment Dinah López, [employer] M[employer]ER, PACKAGING CLERK [facility] Showing future appointments within next 90 days and meeting all other requirements Passed - Lipid panel in past 12 months LDL Date Value Ref Range Status 05/30/2022 118 5 - 130 mg/dL Final HDL CHOLESTEROL Date Value Ref Range Status 05/30/2022 37.5 (L) >40 mg/dL Final CHOLESTEROL Date Value Ref Range Status 05/30/2022 183 <=200 mg/dL Final TRIGLYCERIDES Date Value Ref Range Status 05/30/2022 138 <150 mg/dL Final VLDL Date Value Ref Range Status 05/30/2022 28 5 - 55 mg/dL Final CHOL/HDL RATIO Date Value Ref Range Status 05/30/2022 4.9 (H) 0.0 - 4.4 Final NON-HDL CHOLESTEROL Date Value Ref Range Status 05/30/2022 145.5 (H) <130 mg/dL Final Passed - CMP in past 12 months SODIUM Date Value Ref Range Status 05/30/2022 143 136 - 144 mmol/L Final POTASSIUM Date Value Ref Range Status 05/30/2022 4.0 3.5 - 5.1 mmol/L Final CHLORIDE Date Value Ref Range Status 05/30/2022 104 100 - 110 mmol/L Final CO2, VENOUS Date Value Ref Range Status 05/30/2022 26 22 - 32 mmol/L Final ANION GAP Date Value Ref Range Status 05/30/2022 17.0 8.0 - 20.0 mmol/L Final GLUCOSE Date Value Ref Range Status 05/30/2022 118 (H) 70 - 99 mg/dL Final BUN Date Value Ref Range Status 05/30/2022 13 6 - 20 mg/dL Final CREATININE, BLOOD Date Value Ref Range Status 05/30/2022 1.13 0.80 - 1.30 mg/dL Final BUN/CREATININE RATIO Date Value Ref Range Status 05/30/2022 12 12 - 20 ratio Final TOTAL PROTEIN Date Value Ref Range Status 05/30/2022 7.0 6.0 - 8.3 g/dL Final ALBUMIN Date Value Ref Range Status 05/30/2022 4.6 3.5 - 5.2 g/dL Final Comment: The colormetric methods used for the determination of Albumin may lead to falsely elevated test results in patients suffering from renal failure or insufficiency due to interference with other proteins. A/G RATIO Date Value Ref Range Status 05/30/2022 1.9 1.0 - 2.0 Final CALCIUM Date Value Ref Range Status 05/30/2022 9.4 8.9 - 10.3 mg/dL Final T BILI Date Value Ref Range Status 05/30/2022 1.4 (H) <=1.2 mg/dL Final SGOT (AST) Date Value Ref Range Status 05/30/2022 22 <=40 U/L Final SGPT (ALT) Date Value Ref Range Status 05/30/2022 36 <=41 U/L Final ALKALINE PHOSPHATASE Date Value Ref Range Status 05/30/2022 107 40 - 130 U/L Final GFR, EST. NONAFRICAN Date Value Ref Range Status 05/30/2022 >60 >=60 Final GFR, EST. Date Value Ref Range Status 05/30/2022 >60 >=60 Final GFR, ESTIMATED Date Value Ref Range Status 05/30/2022 >60 >=60 Final Comment: Creatinine Clearance is the preferred criteria for selecting drug dose adjustments in renally impaired patients. The GFR is provided as additional pertinent clinical information. GFR is reported in mL/min/1.73 sq m. Calculation based on the Chronic Kidney Disease Epidemiology Collaboration (CKD- EPI) equation refitwithout adjustment for race. IS THE PATIENT REQUIRED TO BE FASTING? Date Value Ref Range Status 05/30/2022 No Final IX REPAIRER documented in this encounter Plan of Treatment Upcoming Encounters Date Type Department Care Team (Late st Contact Info) Description 10/07/2024 8:00 AM CDT Office Visit [facility] - Family Medicine - [place] [address] [place] [address] Dinah López APRN, PACKAGING CLERK [address] [address] 01/08/2025 9:30 AM CDT Office Visit [facility] - Endocrinology - [place] [address] [place] [address] Wilfredo Wharton MD [address] [facility] [address] [place] [address] documented as of this encounter Visit Diagnoses Diagnosis Mixed hyperlipidemia documented in this encounter Additional Health Concerns Assessment Noted Time PHQ-9 Depression Total Score: 19 023 11:00 AM CDT documented as of this encounter Care Teams Nib Finisher Relationship Specialty Start Date End Date Dinah López APRN, PACKAGING CLERK #2 [facility] [address] [place] [address] PCP - General Advanced Practice Nurse 11/24/21 Wilfredo Wharton MD #[address] [address] Consulting Physician Endocrinology 03/29/22 Power Henao MD [address] [place] [address] Consulting Physician Pulmonary Disease 09/12/22 Thomas Tompkins MD #[address] [address] Consulting Physician General Surgery 05/28/23 documented as of this encounter
--- OUTSIDE RECORDS SUMMARY | 2024-07-15 08:12 | XMS_ITS | Clinical Summary ---
Author Organization [facility] Address [address] [place] [address] Phone Care Team Providers Care Television Cabinet Finisher Name Role Phone Dinah López APRN, CNP Primary Care Provid er Wilfredo Wharton MD Unavailable Power Henao MD Unavailable Thomas Tompkins MD Unavailable [phone] Allergies No known active allergies Medications Glucose Blood (OneTouch Verio) Strip Once a day 100 Each 3 07/10/19 24 Active Lancets Misc Once a day 100 Lancet 3 07/10/19 24 Active famotidine (PEPCID) 20 MG TabletIndications: Heart burn Take 1 Tablet by mouth 2 times daily. 90 Tablet 3 01/30/20 24 Active FLUoxetine (PROZAC) 40 MG CapsuleIndications :Generalized anxiety disorder with panic attacks Take 1 Capsule by mouth daily. 90 Capsule 1 01/30/20 24 Active gabapentin (NEURONTIN) 400 MG Capsule Take 1 Capsule by mouth nightly. 90 Capsule 1 01/30/20 24 Active simvastatin (ZOCOR) 80 MG TabletIndications: Mixed hyperlipidemia Take 1 Tablet by mouth nightly. 90 Tablet 1 01/30/20 24 Active Ozempic, 2 MG/DOSE, 8 MG/3ML Solution Pen-injector 2 mg by Subcutaneous route once a week. 9 mL 1 04/14/19 25 Active sildenafil citrate (VIAGRA) 100 MG TabletIndications: Erectile dysfunction, unspecified erectile dysfunction type TAKE 1 TABLET BY MOUTH DAILY NEEDED FOR ERECTILE DYSFUNCTION 30 Tablet 05/23/19 25 Active buPROPion (WELLBUTRIN) 150 MG XL tabletIndications: Generalized anxiety disorder with panic attacks,Grief reaction Take 1 Tablet by mouth every morning. 90 Tablet 05/30/19 25 Active amoxicillin (AMOXIL) 875 MG TabletIndications: Acute non-recurrent maxillary sinusitis Take 1 Tablet by mouth 2 times daily for 10 days. 20 Tablet 07/04/19 25 025 Active Problems Problem Noted Date Diagnosed Date Type 2 diabetes mellitus wit hout complication, without long-term current use of insulin 04/10/2023 SHELBY (obstructive sleep apnea) 09/12/2022 Non morbid obesity 09/12/2022 Lipids abnormal 09/12/2022 Sensorineural hearing loss (SNHL) of both ears 0 08/08/2022 Encounters Date Type Department Care Team Description 07/09/2024 9:15 AM CDT Office Visit [facility] Endocrinology [facility] [address] [place] [address] Wilfredo Wharton MD Type 2 diabetes mellitus without complication, without long-term current use of insulin (Primary Dx); Class 1 obesity due to excess calories with serious comorbidity and body mass index (BMI) of 31.0 to 31.9 in adult Discharge Disposition: Discharged to home or Selfcare 07/08/2024 Travel 07/03/2024 8:00 AM CDT Office Visit [facility] [address] [place] [address] Dinah López APRN, CNP Generalized anxiety disorder with panic attacks (Primary Dx); Grief reaction; Acute non-recurrent maxillary sinusitis Discharge Disposition: Discharged to home or Selfcare 07/01/2024 Travel 05/29/2024 8:30 AM CDT Office Visit [facility] [address] [place] [address] Dinah López APRN, MARY Grief reaction (Primary Dx); Generalized anxiety disorder with panic attacks; Type 2 diabetes mellitus without complication, without long-term current use of insulin (HCC); Mixed hyperlipidemia; Noise-induced hearing loss of right ear, unspecified hearing status on contralateral side Discharge Disposition: Discharged to home or Selfcare 05/27/2024 Travel 05/23/2024 Travel 05/20/2024 Refill [facility] [address] [place] [address] Piotr Alexander MD Medication Refill from Last 3 Months Immunizations Immunization Administration Dates Next Due Influenza,Split Virus,Trivalent,Injectable,PF Family History Medical History Relation Name Comments No Known Problems Brother Cancer Father Isaiah Prostate Cancer Father Isaiah Prostate Cancer Maternal Grandfather Congestive Heart Failure Maternal Grandmother Carol Heart Attack Maternal Grandmother Carol Heart Disease Maternal Grandmother Carol Hypertension Maternal Grandmother Carol No Known Problems Mother Diabetes Paternal Grandmother [place] Amblyopia Son Relation Name Status Comments Brother Alive Daughter Alive Father Isaiah Half-Sister Alive Maternal Grandfather Maternal Grandmother Carol Alive Mother Alive Paternal Grandfather Paternal Grandmother [place] Son Alive Social History Tobacco Use Types Packs/Day Years Used Date Smoking Tobacco: Never Smokeless Tobacco: Never Tobacco Cessation:Counseling Given: Not Answered Alcohol Use Standard Drinks/Week Comments No 0 (1 standard drink = 0.6 oz pur e alcohol) [facility] Utilities Answer Date Recorded In the past 12 months has [employer] electric, gas, oil, or water company threatened to shut off services in your home? Yes 05/27/2024 Social Connection and Isolation Panel [NHANES] A nswer Date Recorded In a typical week, how many times do you talk on the phone with family, friends, or neighbors? Once a week 05/28/19 How often do you get togethe r with friends or relatives? Never 05/27/2024 How often do you attend chur ch or sabianism services? 1 to 4 times per year 05/27/2024 Do you belong to any clubs o r organizations such as taoist groups, unions, fraternal or athletic groups, or school groups? No 05/27/2024 How often do you attend meet ings of the clubs or organizations you belong to? Never 05/27/2024 Are you , , di vorced, , never , or living with a partner? 05/27/2024 AUDIT-C Answer Date Recorded Q1: How often do you have a drink containing alcohol? Never 05/27/2024 Q2: How many drinks containi ng alcohol do you have on a typical day when you are drinking? Patient does not drink Q3: How often do you have si x or more drinks on one occasion? Never 05/27/2024 Overall Financial Resource Strain (CARDIA) Answe r Date Recorded How hard is it for you to pa y for the very basics like food, housing, medical care, and heating? Not very hard 05/27/2024 PHQ-2 Answer Date Recorded Total Score - Questions 1-9 11 06/17 [facility] Occupat ional Health - Occupational Stress Questionnaire Answer Date Recorded Do you feel stress - tense, restless, nervous, or anxious, or unable to sleep at night because your mind is troubled all the time - these days? Very much 05/27/2024 Exercise Vital Sign Answer Date Recorde d On average, how many days pe r week do you engage in moderate to strenuous exercise (like a brisk walk)? 2 days 05/27/2024 On average, how many minutes do you engage in exercise at this level? 20 min 05/27/2024 Hunger Vital Sign Answer Date Recorded Within the past 12 months, y ou worried that your food would run out before you got the money to buy more. Never true 05/28/19 25 Within the past 12 months, t he food you bought just didn't last and you didn't have money to get more. Never true 05/27/2024 PRAPARE - Transportation Answer Date Re corded In the past 12 months, has l ack of transportation kept you from medical appointments or from getting medications? No 05/17 In the past 12 months, has l ack of transportation kept you from meetings, work, or from getting things needed for daily living? Yes 05/27/2024 Housing Stability Vital Sign Answer Jeffrey e [...] place to sleep or slept in a jail (including now)? No 05/16/2023 Housing Stability Vital Sign Answer Jeffrey e Recorded In the last 12 months, was t here a time when you were not able to pay the mortgage or rent on time? Yes 05/27/2024 In the past 12 months, how m any times have you moved where you were living? 0 05/27/2024 At any time in the past 12 m [facility], were you homeless or living in a jail (including now)? No 05/27/2024 Education Answer Date Recorded What is the highest level of school you have completed or the highest degree you have received? 12th grade 05/29/2022 Sexually Active Control Partners Comments Yes None Female Sex and Gender Information Value Date Recorded Sex Assigned at Not on file Legal Sex Male 8:06 PM CDT Gender Identity Not on file Sexual Orientation Not on file Last Filed Vital Signs Vital Sign Reading Time Taken Comments Blood Pressure 120/76 07/09/2024 8:34 AM CDT Pulse 81 07/09/2024 8:34 AM CDT Temperature 36.4 C (97.5 F) 07/09/2024 8:34 AM CDT Respiratory Rate 22 07/09/2024 8:34 AM CDT Oxygen Saturation 97% 07/09/2024 8:34 AM CDT Inhaled Oxygen Concentration - - Weight 105.6 kg (232 lb 12.8 oz) 07/09/2024 8:34 AM CDT Height 182.9 cm (6') 07/03/2024 8:01 AM CDT Body Mass Index 31.57 07/03/2024 8:01 AM CDT Plan of Treatment Upcoming Encounters Date Type Department Care Team (Late st Contact Info) Description 10/07/2024 8:00 AM CDT [facility] [place] [phone] Dinah López APRN, [employer] BPM DEVELOPER [address] [address] 01/08/2025 9:30 AM CDT Office Visit [facility] - Endocrinology - [place] [address] [place] [address] Wilfredo Wharton MD [address] [address] Health Maintenance Due Date Last Done Comments Hepatitis C Virus (HCV) Screening 1974 TdaP Immunization 1974 Pneumococcal Immunization (50+ years) (1 of 2 - PCV) 1993 Colonoscopy 2019 Colorectal Cancer Screening 2019 Cologuard 2024 Immunochemical Fecal Occult Blood 2024 Zoster Immunization (1 of 2) 2024 Diabetes: Eye Exam 04/23/2024 04/23/2023 Diabetes: Hemoglobin A1c 01/08/2025 025, 04/10/2024, 10/09/2023, Additional history exists Diabetes: Nephropathy Screening 05/23/2025 05/23/2024, 05/23/2024, 01/23/2024, Additional history exists Diabetes: Foot Exam 07/09/2025 07/09/2024, Respiratory Syncytial Virus (RSV) Immunization (Adult) (1 - 1-dose 75+ series) 2049 Influenza Immunization Completed 01/30/2024 Hepatitis B Immunization Discontinued Meningococcal Immunization (ACWY) Aged Out No longer eligible based on patient's age to complete this topic Rotavirus Immunization Aged Out No lo nger eligible based on patient's age to complete this topic SARS-COV-2 Immunization Discontinued Procedures Procedure Name Priority Date/Time Associated Diagnosis Comments POCT GLYCOSYLATED HEMOGLOBIN Routine 07/09/2024 8:37 AM CDT Type 2 diabetes mellitus without complication, without long-term current use of insulin UR MICROALBUMIN/CREATINI NE RATIO RANDOM Routine 05/23/2024 8:28 AM SENIOR IT SPECIALIST Type 2 diabetes mellitus without complication, without long-term current use of insulin (HCC) LIPID PANEL Routine 05/23/2024 8:28 AM SENIOR IT SPECIALIST Type 2 diabetes mellitus without complication, without long-term current use of insulin (HCC) CMP (COMPREHENSIVE METABOLIC PANEL) Routine 05/23/2024 8:28 AM SENIOR IT SPECIALIST Type 2 diabetes mellitus without complication, without long-term current use of insulin (HCC) from Last 3 Months Results * POCT GLYCOSYLATED HEMOGLOBIN (07/09/2024 8:37 AM CDT) Pathologist [facility] HGB-A1C 5.1 4 - 6 % Blood 07/09/2024 8:37 AM CDT us Wilfredo Wharton MD POINT OF CARE TESTING (MANUAL) F inal Result * UR MICROALBUMIN/CREATININE RATIO RANDOM (05/23/2024 8:28 AM SENIOR IT SPECIALIST) Pathologist [facility] RAN UR MICROALBUMIN 1.31 mg/dL 05/23/2024 9:33 AM SENIOR IT SPECIALIST [facility] Comment:No reference range h as been established. Consider Clinical Correlation. CREATININE URINE 219.6 mg/dL 05/24/19 9:33 AM SENIOR IT SPECIALIST [facility] Comment:No reference range h as been established. Consider Clinical Correlation. ALB/CREAT RATIO 6 0 - 30 mg/g CRE 05/23/2024 9:33 AM SENIOR IT SPECIALIST [facility] Urine Non-Phlebotomy Collection / Unknown 05/23/2024 8:28 AM SENIOR IT SPECIALIST 05/23/2024 9:14 AM SENIOR IT SPECIALIST us Piotr Alexander MD URINE ORDERABLES Final Result [facility] [address] [place] [address] * (ABNORMAL) LIPID PANEL (05/23/2024 8:28 AM SENIOR IT SPECIALIST) [facility] CHOLESTEROL 205(H) <200 mg/dL 05/23/2024 9:50 AM SENIOR IT SPECIALIST [facility] TRIGLYCERIDES 198(H) <150 mg/dL 05/23/2024 9:50 AM [facility] HDL CHOLESTEROL 39(L) >40 mg/dL 9:50 AM [facility] LDL 126 <130 mg/dL 05/23/2024 9:50 AM [facility] VLDL 40 10 - 50 mg/dL 05/23/2024 9:50 AM [facility] CHOL/HDL RATIO 5.3(H) 0.0 - 4.4 05/23/2024 9:50 AM [facility] NON-HDL CHOLESTEROL 166(H) <130 mg/dL 05/23/2024 9:50 AM [facility] IS THE PATIENT REQUIRED TO BE FASTING? No 05/23/2024 9:50 AM [facility] Blood Venipuncture / Unknown 05/23/2024 8:28 AM SENIOR IT SPECIALIST 05/23/2024 9:14 AM SENIOR IT SPECIALIST us Piotr Alexander MD CHEMISTRY ORDERABLES Final Re sult [facility] [address] [place] [address] * (ABNORMAL) CMP (COMPREHENSIVE METABOLIC PANEL) (05/23/2024 8:28 AM [facility]) SODIUM 141 136 - 145 mmol/L 05/23/2024 9:50 AM [facility] POTASSIUM 3.9 3.5 - 5.1 mmol/L 05/23/2024 9:50 AM [facility] CHLORIDE 108(H) 98 - 107 mmol/L 05/23/2024 9:50 AM [facility] CO2, VENOUS 24 22 - 30 mmol/L 05/23/2024 9:50 AM [facility] ANION GAP 12.9 <18.0 mmol/L 05/23/2024 9:50 AM [facility] GLUCOSE 100(H) 70 - 99 mg/dL 05/23/2024 9:50 AM [facility] BUN 14 8 - 26 mg/dL 05/23/2024 9:50 AM [facility] CREATININE, BLOOD 1.18 0.70 - 1.30 mg/dL 05/23/2024 9:50 AM [facility] BUN/CREATININE RATIO 12 12 - 20 ratio 05/23/2024 9:50 AM [facility] TOTAL PROTEIN 7.3 6.0 - 8.0 g/dL 05/23/2024 9:50 AM [facility] ALBUMIN 4.4 3.5 - 5.0 g/dL 05/23/2024 9:50 AM [facility] A/G RATIO 1.5 1.0 - 2.2 05/23/2024 9:50 AM [facility] CALCIUM 8.9 8.7 - 10.5 mg/dL 05/23/2024 9:50 AM [facility] T BILI 1.3(H) 0.2 - 1.2 mg/dL 05/23/2024 9:50 AM [facility] SGOT (AST) 27 <43 U/L 05/23/2024 9:50 AM [facility] SGPT (ALT) 39 <56 U/L 05/23/2024 9:50 AM [facility] ALKALINE PHOSPHATASE 84 40 - 150 U/L 05/23/2024 9:50 AM [facility] IS THE PATIENT REQUIRED TO BE FASTING? No 05/23/2024 9:50 AM [facility] GFR, ESTIMATED >60 >=60 05/23/2024 9:50 AM [facility] Comment: Creatinine Clearance is the preferred criteria for selecting drug dose adjustments in renally impaired patients. The GFR is provided as additional pertinent clinical information. GFR is reported in mL/min/1.73 sq m. Calculation based on the Chronic Kidney Disease Epidemiology Collaboration (CKD- EPI) equation refit without adjustment for race. GFR, EST. >60 >=60 025 9:50 AM SENIOR IT SPECIALIST [facility] GFR, EST. NONAFRICAN >60 >=60 05/23/2024 9:50 AM SENIOR IT SPECIALIST [facility] Blood Venipuncture / Unknown 05/23/2024 8:28 AM SENIOR IT SPECIALIST 05/23/2024 9:14 AM SENIOR IT SPECIALIST Piotr Alexander MD CHEMISTRY ORDERABLES Final Re sult [facility] [address] [place] [address] from Last 3 Months Insurance MEDICAID [employer]ID [employer] Care Teams Television Cabinet Finisher Relationship Specialty Start Date End Date ReneMariannDinahMATT, MARY #2 [facility] [address] [place] [address] PCP - General Advanced Practice Nurse 11/24/21 Wilfredo Wharton MD #[address] [phone] Consulting Physician Endocrinology 03/29/22 Power Henao MD #2 [place] [address] Consulting Physician Pulmonary Disease 09/12/22 Thomas Tompkins MD #[address] [phone] Consulting Physician General Surgery 05/28/23
--- OUTSIDE RECORDS SUMMARY | 2024-07-15 08:12 | XMS_ITS | Encounter Summary ---
Author Organization [facility] Address [address] [place] [address] Phone Care Team Providers Care Registered Occupational Therapist Name Role Phone Dinah López APRN, CNP Primary Care Provid er Wilfredo Wharton MD Unavailable Power Henao MD Unavailable Thomas Tompkins MD Unavailable Reason for Visit * Reason Comments Medication Refill Encounter Details Date Type Department Care Team (Late Contact Info) Description 09/27/2022 Refill [facility] - [facility] [address] [place] [address] Dinah López APRN, CNP [address] [address] Medication Refill Social History Tobacco [...] suspected to have Coronavirus/COVID-19? No / Unsure 09/11/2022 12:09 PM CDT documented as of this encounter Miscellaneous Notes * Telephone Encounter - Linda Pond RN - 09/28/2022 10:16 AM CDT Medication failed the protocol, provider to review and approve the medication order if appropriate. Requested Prescriptions Pending Prescriptions Disp Refills FLUoxetine (PROzac) 20 MG Capsule [Pharmacy Med Name: FLUOXETINE 20MG CAPSULES] 90 Capsule 1 Sig: TAKE 1 CAPSULE BY MOUTH DAILY [facility] (6 Month Refill Only) Protocol Failed - 09/27/2022 2:24 PM Failed - Patient has established therapy with [facility] for at least 6 months Passed - Visit with relevant provider in past 6 months or upcoming 90 days Recent Visits Date Type Provider Dept 08/08/22 Office Visit Dinah López APRN, CNP [facility] 06/27/22 Office Visit Dinah López APRN, CNP [facility] 05/30/22 Office Visit Dinah López APRN, [facility] Showing recent visits within past 182 days and meeting all other requirements Future Appointments Date Type Provider Dept 11/09/22 Appointment Dinah López APRN, CNP [facility] Showing future appointments within next 90 days and meeting all other requirements Passed - Has an encounter in the past 6 months with a depression, anxiety, adjustment disorder, OCD, or PTSD visit diagnosis documented in this encounter Plan of Treatment Upcoming Encounters Date Type Department Care Team (Late st Contact Info) Description 10/07/2024 8:00 AM CDT Office Visit [facility] - Family Medicine - [place] [address] [place] [id number] Dinah López APRN, [employer] [address] [address] 01/08/2025 9:30 AM CDT Office Visit [facility] - Endocrinology - [place] [address] [place] [address] Wilfredo Wharton MD [id number] [address] documented as of this encounter Visit Diagnoses Diagnosis Generalized anxiety disorder with panic attacks documented in this encounter Additional Health Concerns Assessment Noted Time PHQ-9 Depression Total Score: 19 023 11:00 AM CDT documented as of this encounter Care Teams Registered Occupational Therapist Relationship Specialty Start Date End Date Dinah López APRN, CNP [address] [phone] PCP - General Advanced Practice Nurse 11/24/21 Wilfredo Wharton MD [id number] [phone] Consulting Physician Endocrinology 03/29/22 Power Henao MD [address] [facility] [place] [address] Consulting Physician Pulmonary Disease 09/12/22 Thomas Tompkins MD [address] [phone] Consulting Physician General Surgery 05/28/23 documented as of this encounter
== END 2024-07-15 08:05 | disposition home or self-care (01) ==
LOC: ANHBWCAUD 08:05
DX: F41.1 Generalized anxiety disorder (principal); E11.9 Type 2 diabetes mellitus without complications
CPT/HCPCS: 92557; 92567